=== PATIENT | male | born 1985 | race Hispanic/Latino ===

== ENCOUNTER 2018-05-12 02:58 | Emergency (ER) | payer SELFPAY ==
[2018-05-12 03:15] VITALS: BP 136/72; RESP 16; TEMP 98.8; O2SAT 97
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
[2018-05-12 06:07] VITALS: PULSE 104
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
--- NOTE | 2018-05-12 08:22 | CT ---
Date of service: 05/12/2018 PROCEDURE: CT MAXILLOFACIAL BONES WITHOUT CONTRAST HISTORY: R/O FACIAL BONE FX COMPARISON: None available. TECHNIQUE: Contiguous axial CT images of the maxillofacial bones were obtained. Coronal and sagittal reformats were generated. Radiation dose: Total exam DLP = 1701.74 mGy-cm. This CT exam was performed using one or more of the following dose reduction techniques: Automated exposure control, adjustment of the mA and/or kV according to patient size, and/or use of iterative reconstruction technique. FINDINGS: NASAL BONES: Unremarkable. ORBITS: Unremarkable. PARANASAL SINUSES/ MASTOIDS: Opacification of the left maxillary sinus. Moderate right maxillary sinus disease. Extensive ethmoid air cell opacification. Sphenoid sinus disease. MAXILLA: Unremarkable. MANDIBLE/ TEMPOROMANDIBULAR JOINTS: Unremarkable. SKULL BASE: Unremarkable. TEMPORAL BONES: Middle ears and mastoid grossly unremarkable. OTHER FINDINGS: None. IMPRESSION: No fracture. Extensive sinus disease.
== END 2018-05-12 05:55 | disposition home or self-care (01) ==
LOC: H.ER 02:58
DX: S01.81XA Laceration without foreign body of other part of head, initial encounter (principal); Y04.0XXA Assault by unarmed brawl or fight, initial encounter; Y92.89 Other specified places as the place of occurrence of the external cause